=== PATIENT | male | born 1960 | race Caucasian/White ===

== ENCOUNTER 2016-11-24 20:22 | Emergency (ER) | payer OTHER ==
[~2016-11-24] VITALS: Ht 182.8 cm; Wt 79.8 kg
[~2016-11-24 20:22] MED LIST: CYCLOBENZAPRINE10 MG PO; LISINOPRIL AND1 TAB PO; LISINOPRIL10 M1 PO; LOPRESSOR50 M1 PO; MELATONIN10 M4 PO; METOPROLOL TART50 M1 PO; MOBIC15 MG PO; MOBIC7.5 MG PO; NATURE'S BLEN2000 IU PO; PROVENTIL0.09 MG/AC IH; SYMBICORT1 AE1 INH; TRAZODONE50 MG PO; VITAMIN D1000 IU PO; ZITHROMAX Z PA250 MG PO
[2016-11-24 21:02] LABS: BASO # 0.1 10*3/uL (0.0-0.1); BASO % 0.8 % (0.0-1.0); EOS # 0.4 10*3/uL (0.0-0.4); EOS % 5.9 % (1.0-4.0); HEMATOCRIT 42.2 % (42.0-52.0); LYMPH # 2.6 10*3/uL (1.3-4.4); LYMPH % 36.4 % (27.0-41.0); MEAN CELL VOLUME 89.6 fl (80.0-94.0); MEAN CORPUSCULAR HGB 31.8 pg (27.0-31.0); MEAN CORPUSCULAR HGB CONC 35.5 g/dl (33.0-37.0); MEAN PLATELET VOLUME 10.6 fl (9.6-12.3); MONO # 0.9 10*3/uL (0.1-1.0); MONO % 12.3 % (3.0-9.0); NEUT # 3.2 10*3/uL (2.3-7.9); NEUT % 44.5 % (47.0-73.0); PLATELET COUNT AUTOMATED 243 10*3/uL (130-400); RED BLOOD COUNT 4.71 10*6/uL (4.50-5.90); WHITE BLOOD COUNT 7.2 10*3/uL (4.8-10.8)
[2016-11-24 21:19] LABS: ALBUMIN 3.8 gm/dl (3.1-4.5); ALKALINE PHOSPHATASE 58 U/L (45-117); BILIRUBIN, TOTAL 0.3 mg/dl (0.2-1.0); BUN 26 mg/dl (7-24); CARBON DIOXIDE 27 mmol/L (21-32); CHLORIDE 99 mmol/L (98-107); EST GLOM FILT AFRICAN AMERICAN > 60 ml/min; GLUCOSE 90 mg/dL (65-99); POTASSIUM 4.3 mmol/L (3.5-5.1); SGOT/AST 28 IU/L (3-35); SGPT/ALT 33 U/L (12-78); SODIUM 136 mmol/L (136-145); TOTAL PROTEIN 7.5 gm/dL (6.4-8.2)
[2016-11-24] MEDS ORDERED: PROAIR HFA8.5 GM INH (22:19)
[2016-11-24] MEDS ORDERED: PREDNISONE50 MG PO (22:19)
[2016-11-24] MEDS ORDERED: ZITHROMAX250 MG PO (22:19)
== END 2016-11-24 22:20 | disposition home or self-care (01) ==
LOC: ED 20:22
PROVIDERS: Emergency Medicine
DX: J32.9 Chronic sinusitis, unspecified (principal); J40 Bronchitis, not specified as acute or chronic; F17.210 Nicotine dependence, cigarettes, uncomplicated; I10 Essential (primary) hypertension; J44.9 Chronic obstructive pulmonary disease, unspecified; Z79.899 Other long term (current) drug therapy

== ENCOUNTER 2016-12-23 11:23 | Emergency (ER) | payer OTHER ==
[~2016-12-23] VITALS: Ht 182.8 cm; Wt 77.1 kg
[~2016-12-23 11:23] MED LIST changes: +PREDNISONE50 MG PO; +PROAIR HFA8.5 GM INH; +ZITHROMAX250 MG PO
== END 2016-12-23 13:42 | disposition home or self-care (01) ==
LOC: ED 11:23
DX: S16.1XXA Strain of muscle, fascia and tendon at neck level, initial encounter (principal); F17.200 Nicotine dependence, unspecified, uncomplicated; J44.9 Chronic obstructive pulmonary disease, unspecified; I10 Essential (primary) hypertension; Z86.2 Personal history of diseases of the blood and blood-forming organs and certain disorders involving the immune mechanism; Z79.899 Other long term (current) drug therapy; Z88.8 Allergy status to other drugs, medicaments and biological substances; V86.99XA Unspecified occupant of other special all-terrain or other off-road motor vehicle injured in nontraffic accident, initial encounter; Y93.89 Activity, other specified; Y92.413 State road as the place of occurrence of the external cause; Y99.9 Unspecified external cause status

== ENCOUNTER 2018-03-09 16:32 | Inpatient (IN) | payer OTHER ==
[~2018-03-09] VITALS: Ht 182.8 cm; Wt 75.8 kg
--- NOTE | ~2018-03-09 | EKG ---
[place], [place] ELECTROCARDIOGRAM REPORT NAME: AUGUSTINE KUHN UNIT #: [id number] ROOM: 415 DOCTOR: GUNNER EPSTEIN MD BIRTHDATE: [birth year] DOS: 03/09/2018 TIME: 1640 hours. FINDINGS: 1. Normal sinus rhythm with 93 beats per minute. 2. Poor RV progression is present. Consider an old anteroseptal myocardial infarction. 3. An abnormal ECG. 4. No previous tracing is available for comparison. GUNNER EPSTEIN MD CM:EKGRPT:ELECTROCARDIOGRAM REPORT [id number] GUNNER EPSTEIN MD
--- NOTE | ~2018-03-09 | EKG ---
[place], [place] ELECTROCARDIOGRAM REPORT NAME: AUGUSTINE KUHN UNIT #: [id number] ROOM: 415 DOCTOR: GUNNER EPSTEIN MD BIRTHDATE: [birth year] DOS: 03/09/2018 TIME: 1937 hours. FINDINGS: 1. Normal sinus rhythm at 91 beats per minute. 2. An old anteroseptal myocardial infarction. 3. No significant change from the ECG done at 1640 hours of the same day. GUNNER EPSTEIN MD CM:EKGRPT:ELECTROCARDIOGRAM REPORT [id number] GUNNER EPSTEIN MD
--- NOTE | ~2018-03-09 | CON ---
[place], [place] REPORT OF CONSULTATION NAME: AUGUSTINE KUHN UNIT #: [id number] ROOM: 415 DOCTOR: FILEMON CARRANZA MD BIRTHDATE: [birth year] DOS: 03/10/2018 HISTORY OF PRESENT ILLNESS: The patient is a 58-year-old gentleman admitted with chest discomfort and lightheadedness. The patient has a very strong family history of coronary artery disease. The patient is a heavy smoker. No acute EKG changes, myocardial injury or infarction. Troponins have been negative. PAST MEDICAL HISTORY: Significant for GI bleed, hypertension, hyponatremia, anemia, history of syncope, and tobacco abuse. SURGICAL HISTORY: History of cataract surgery. SOCIAL HISTORY: Does drink alcohol. Denies any drug abuse. The patient is a smoker. FAMILY HISTORY: Strong family history of coronary artery in father with GA, in the age of 53. HOME MEDICATIONS: Lisinopril, Ventolin, and trazodone. REVIEW OF SYSTEMS: CONSTITUTIONAL: No fever, no chills. HEENT: No visual disturbance, hearing problems. CARDIOVASCULAR: As per HPI. GASTROINTESTINAL: No nausea, no vomiting. GENITOURINARY: No dysuria. NEUROLOGIC: Stable. PHYSICAL EXAMINATION: VITAL SIGNS: Blood pressure is 130/80. He is in sinus rhythm. HEENT: Unremarkable. NECK: Supple, no JVD. LUNGS: Clear. HEART: Sounds are regular. ABDOMEN: Soft, nontender. NEUROLOGIC: Stable. LABORATORY DATA: Sodium 133, potassium 4.1, and creatinine is normal. Liver functions are normal. Hemoglobin 17, hematocrit normal. Chest x-ray is normal. IMPRESSION: The patient with atypical chest discomfort, chronic obstructive pulmonary disease, hypertension, family history of coronary artery disease, and presyncope. RECOMMENDATIONS: Agree with the present management. Proceed with the Lexiscan Cardiolite stress test. Continue the present medication. Lexiscan will be done today. Further management will depend upon the stress findings. Also, we will review the echocardiogram. [place], [place] REPORT OF CONSULTATION NAME: AUGUSTINE KUHN UNIT #: [id number] ROOM: 415 DOCTOR: FILEMON CARRANZA MD BIRTHDATE: [birth year] FILEMON CARRANZA MD CM:CONSTR:REPORT OF CONSULTATION 4 03/10/18 0747 interface
--- NOTE | ~2018-03-09 | ST ---
[place], [place] EXERCISE STRESS TEST REPORT NAME: AUGUSTINE KUHN UNIT #: [id number] ROOM: 415 DOCTOR: FILEMON CARRANZA MD BIRTHDATE: [birth year] DOS: 03/10/2018 LEXISCAN PORTION OF THE LEXISCAN CARDIOLITE With Lexiscan no new EKG changes. The patient had no chest discomfort. Baseline EKG, sinus rhythm with poor R-wave progression in the anterior leads and with Lexiscan no chest pain, no dysrhythmia. Blood pressure and heart rate response was normal. Nuclear images will be reported separately. FILEMON CARRANZA MD CM:STRESS:EXERCISE STRESS TEST REPORT 0720 0727 FILEMON CARRANZA MD
--- NOTE | ~2018-03-09 | EKG ---
[place], [place] ELECTROCARDIOGRAM REPORT NAME: AUGUSTINE KUHN UNIT #: [id number] ROOM: 415 DOCTOR: GUNNER EPSTEIN MD BIRTHDATE: [birth year] DOS: 03/09/2018 TIME: 2219 hours. FINDINGS: 1. Normal sinus rhythm at 89 beats per minute. 2. Possible old anteroseptal myocardial infarction. 3. No significant change from ECG done at 1937 of the same day. GUNNER EPSTEIN MD CM:EKGRPT:ELECTROCARDIOGRAM REPORT [id number] 0926 GUNNER EPSTEIN MD
[2018-03-09 16:33] VITALS: BP 138/99
[2018-03-09] MEDS ORDERED: VENTOLIN INHALER INH (16:51)
[2018-03-09] MEDS ORDERED: LISINOPRIL2.5 MG PO (16:52)
[2018-03-09 16:55] VITALS: BP 129/96
[2018-03-09] MEDS ORDERED: SINGULAIR10 M1 PO (16:55)
[2018-03-09 17:15] LABS: BASO # 0.1 10*3/uL (0.0-0.1); BASO % 0.9 % (0.0-1.0); EOS # 0.1 10*3/uL (0.0-0.4); EOS % 1.6 % (1.0-4.0); HEMATOCRIT 47.8 % (42.0-52.0); LYMPH # 1.8 10*3/uL (1.3-4.4); MEAN CELL VOLUME 93.7 fl (80.0-94.0); MEAN CORPUSCULAR HGB 33.3 pg (27.0-31.0); MEAN CORPUSCULAR HGB CONC 35.6 g/dl (33.0-37.0); MEAN PLATELET VOLUME 10.4 fl (9.6-12.3); MONO # 0.7 10*3/uL (0.1-1.0); MONO % 8.8 % (3.0-9.0); NEUT % 65.6 % (47.0-73.0); PLATELET COUNT AUTOMATED 243 10*3/uL (130-400); RED CELL DISTRI WIDTH 12.3 % (0-14.5); WHITE BLOOD COUNT 7.7 10*3/uL (4.8-10.8)
[2018-03-09 17:24] LABS: ACT PARTIAL THROMBO TIME 24.2 SECONDS (20.8-31.5); INTERNATIONAL NORM RATIO 0.9 (2.0-3.5)
[2018-03-09 17:32] LABS: ALKALINE PHOSPHATASE 58 U/L (45-117); BUN 7 mg/dl (7-24); CHLORIDE 97 mmol/L (98-107); CREATININE 0.93 mg/dL (0.70-1.30); POTASSIUM 4.1 mmol/L (3.5-5.1); SGOT/AST 83 IU/L (3-35); SGPT/ALT 98 U/L (12-78); SODIUM 133 mmol/L (136-145); TOTAL PROTEIN 8.2 gm/dL (6.4-8.2)
[2018-03-09 17:37] LABS: TROPONIN I < 0.015 ng/ml (<0.045)
[2018-03-09 17:49] VITALS: BP 128/93
[2018-03-09 19:10] VITALS: BP 135/95
[2018-03-09 20:00] VITALS: BP 135/87
[2018-03-10] VITALS: BP 131/93
[2018-03-10 05:52] VITALS: BP 154/96
[2018-03-10 09:17] LABS: HEMOGLOBIN 15.6 g/dl (14.0-18.0); MEAN CELL VOLUME 94.6 fl (80.0-94.0); MEAN CORPUSCULAR HGB 33.5 pg (27.0-31.0); MEAN CORPUSCULAR HGB CONC 35.5 g/dl (33.0-37.0); MEAN PLATELET VOLUME 10.7 fl (9.6-12.3); PLATELET COUNT AUTOMATED 219 10*3/uL (130-400); RED BLOOD COUNT 4.65 10*6/uL (4.50-5.90); RED CELL DISTRI WIDTH 12.4 % (0-14.5); WHITE BLOOD COUNT 12.5 10*3/uL (4.8-10.8)
[2018-03-10 09:36] LABS: ALBUMIN 3.7 gm/dl (3.1-4.5); BUN 9 mg/dl (7-24); CHLORIDE 102 mmol/L (98-107); CHOLESTEROL 161 mg/dL (<200); CREATININE 0.99 mg/dL (0.70-1.30); PHOSPHOROUS 2.8 mg/dL (2.5-4.9); POTASSIUM 3.5 mmol/L (3.5-5.1); SGOT/AST 32 IU/L (3-35); SGPT/ALT 71 U/L (12-78); SODIUM 136 mmol/L (136-145); TRIGLYCERIDES 43 mg/dl (<150); VLDL CHOLESTEROL 9 mg/dL (6-40)
[2018-03-10 09:40] LABS: PLATELET SUFFICIENCY NORMAL (NORMAL); TOTAL CELLS COUNTED 100 #CELLS
[2018-03-10 09:43] LABS: ALKALINE PHOSPHATASE 46 U/L (45-117); HDL CHOLESTEROL 91 mg/dl (40-60); LDL CHOLESTEROL 61 mg/dL (9-159); THYROID STIM HORMONE (HS) 0.656 uIU/ml (0.358-4.75); TOTAL PROTEIN 7.5 gm/dL (6.4-8.2)
[2018-03-10] MEDS ORDERED: PROVENTIL HFA6.7 GM INH (09:46)
[2018-03-10] MEDS ORDERED: SPIRIVA18 MCG PO (09:47)
[2018-03-10 12:00] VITALS: BP 162/96
[2018-03-10 12:57] LABS: VITAMIN D, 25-HYDROXY 70.5 ng/mL (30-100)
[2018-03-10 16:00] VITALS: BP 133/75; BP 141/87
== END 2018-03-10 18:37 | disposition home or self-care (01) | DRG 312 ==
LOC: ED 16:32 → 4E 18:09 → EDHOLD 18:09 → 4E 18:40
PROVIDERS: Emergency Medicine; Internal Medicine
PROC: 4A02XM4 Measurement of Cardiac Total Activity, External Approach (ICD-10-PCS; principal; 2018-03-10)
PROC: 3E073KZ Introduction of Other Diagnostic Substance into Coronary Artery, Percutaneous Approach (ICD-10-PCS; 2018-03-10)
DX: R55 Syncope and collapse (principal); I11.0 Hypertensive heart disease with heart failure; E87.8 Other disorders of electrolyte and fluid balance, not elsewhere classified; R65.10 Systemic inflammatory response syndrome (SIRS) of non-infectious origin without acute organ dysfunction; I50.32 Chronic diastolic (congestive) heart failure; E87.1 Hypo-osmolality and hyponatremia; E83.41 Hypermagnesemia; R07.89 Other chest pain; I25.2 Old myocardial infarction; D72.810 Lymphocytopenia; R74.0 Nonspecific elevation of levels of transaminase and lactic acid dehydrogenase [LDH]; J44.9 Chronic obstructive pulmonary disease, unspecified; F17.210 Nicotine dependence, cigarettes, uncomplicated; F10.10 Alcohol abuse, uncomplicated; D53.9 Nutritional anemia, unspecified; I77.810 Thoracic aortic ectasia; Z71.6 Tobacco abuse counseling; Z98.49 Cataract extraction status, unspecified eye; Z83.3 Family history of diabetes mellitus; Z82.49 Family history of ischemic heart disease and other diseases of the circulatory system; Z88.8 Allergy status to other drugs, medicaments and biological substances; Z79.51 Long term (current) use of inhaled steroids; Z79.899 Other long term (current) drug therapy

== ENCOUNTER 2018-10-28 12:24 | Emergency (ER) | payer OTHER ==
[~2018-10-28] VITALS: Ht 182.8 cm; Wt 88.5 kg
--- NOTE | ~2018-10-28 | EKG ---
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
[~2018-10-28 12:24] MED LIST changes: +LISINOPRIL2.5 MG PO; +PROVENTIL HFA6.7 GM INH; +SINGULAIR10 M1 PO; +SPIRIVA18 MCG PO; +VENTOLIN INHALER INH
[2018-10-28 13:26] LABS: BASO # 0.1 10*3/uL (0.0-0.1); BASO % 1.1 % (0.0-1.0); EOS # 0.4 10*3/uL (0.0-0.4); EOS % 4.8 % (1.0-4.0); HEMOGLOBIN 14.3 g/dl (14.0-18.0); LYMPH # 2.2 10*3/uL (1.3-4.4); LYMPH % 29.4 % (27.0-41.0); MEAN CORPUSCULAR HGB 32.9 pg (27.0-31.0); MEAN CORPUSCULAR HGB CONC 35.8 g/dl (33.0-37.0); MEAN PLATELET VOLUME 10.4 fl (9.6-12.3); MONO # 0.6 10*3/uL (0.1-1.0); MONO % 8.5 % (3.0-9.0); NEUT # 4.2 10*3/uL (2.3-7.9); NEUT % 55.8 % (47.0-73.0); PLATELET COUNT AUTOMATED 275 10*3/uL (130-400); RED BLOOD COUNT 4.35 10*6/uL (4.50-5.90); RED CELL DISTRI WIDTH 11.9 % (0-14.5); WHITE BLOOD COUNT 7.6 10*3/uL (4.8-10.8)
[2018-10-28 14:04] LABS: ALBUMIN 3.8 gm/dl (3.1-4.5); ALKALINE PHOSPHATASE 60 U/L (45-117); BUN 17 mg/dl (7-24); CHLORIDE 101 mmol/L (98-107); CREATININE 1.26 mg/dL (0.70-1.30); LIPASE 138 U/L (73-393); POTASSIUM 3.9 mmol/L (3.5-5.1); SGOT/AST 15 IU/L (3-35); SGPT/ALT 29 U/L (12-78); SODIUM 135 mmol/L (136-145); TOTAL PROTEIN 7.8 gm/dL (6.4-8.2)
[2018-10-28 14:05] LABS: TROPONIN I < 0.015 ng/ml (<0.045)
[2018-10-28 14:19] LABS: ACT PARTIAL THROMBO TIME 23.5 SECONDS (20.8-31.5); INTERNATIONAL NORM RATIO 0.9 (2.0-3.5)
[2018-10-28] MEDS ORDERED: PRILOSEC20 M1 PO (15:35)
[2019-02-11] MEDS ORDERED: ATENOLOL25 MG PO (12:20)
== END 2018-10-28 15:39 | disposition home or self-care (01) ==
LOC: ED 12:24
PROVIDERS: Internal Medicine
DX: K29.70 Gastritis, unspecified, without bleeding (principal); L40.9 Psoriasis, unspecified; Z87.891 Personal history of nicotine dependence; Z88.8 Allergy status to other drugs, medicaments and biological substances; Z79.899 Other long term (current) drug therapy

== ENCOUNTER 2019-05-13 08:59 | Emergency (ER) | payer OTHER ==
[~2019-05-13] VITALS: Ht 182.8 cm; Wt 81.6 kg
[~2019-05-13 08:59] MED LIST changes: +ATENOLOL25 MG PO; +PRILOSEC20 M1 PO
[2019-05-13] MEDS ORDERED: CEPHALEXIN500 M1 PO (09:37)
[2019-05-13] MEDS ORDERED: SEPTDS PO (09:37)
== END 2019-05-13 09:39 | disposition home or self-care (01) ==
LOC: ED 08:59
DX: L02.212 Cutaneous abscess of back [any part, except buttock and flank] (principal); I10 Essential (primary) hypertension; F17.200 Nicotine dependence, unspecified, uncomplicated; Z88.8 Allergy status to other drugs, medicaments and biological substances; Z79.899 Other long term (current) drug therapy

== ENCOUNTER 2020-11-22 08:51 | Emergency (ER) | payer OTHER ==
[~2020-11-22] VITALS: Wt 81.6 kg
[~2020-11-22 08:51] MED LIST changes: +CEPHALEXIN500 M1 PO; +SEPTDS PO
[2020-11-22] MEDS ORDERED: DEBROX15 ML OT (09:14)
== END 2020-11-22 09:14 | disposition home or self-care (01) ==
LOC: ED 08:51
DX: H61.21 Impacted cerumen, right ear (principal); J44.9 Chronic obstructive pulmonary disease, unspecified; I10 Essential (primary) hypertension; F17.200 Nicotine dependence, unspecified, uncomplicated; Z88.8 Allergy status to other drugs, medicaments and biological substances; Z79.899 Other long term (current) drug therapy

== ENCOUNTER 2022-07-13 09:44 | Emergency (ER) | payer OTHER ==
[~2022-07-13] VITALS: Ht 182.8 cm; Wt 79.4 kg
[~2022-07-13 09:44] MED LIST changes: +DEBROX15 ML OT
[2022-07-13] MEDS ORDERED: CETRAXAL1 EACH OT (10:36)
== END 2022-07-13 10:45 | disposition home or self-care (01) ==
LOC: ED 09:44
DX: H60.91 Unspecified otitis externa, right ear (principal); Z88.8 Allergy status to other drugs, medicaments and biological substances; Z79.899 Other long term (current) drug therapy; F17.200 Nicotine dependence, unspecified, uncomplicated

== ENCOUNTER 2023-03-28 10:02 | Emergency (ER) | payer OTHER ==
[~2023-03-28] VITALS: Ht 182.8 cm; Wt 77.1 kg
[~2023-03-28 10:02] MED LIST changes: +CETRAXAL1 EACH OT
[2023-03-28] MEDS ORDERED: CEPHALEXIN500 M1 PO (10:31)
[2023-03-28] MEDS ORDERED: BACITRACIN28.4 GM TD (10:31)
[2023-03-28] MEDS ORDERED: XEROFORM PETRO1 EACH TD (10:31)
== END 2023-03-28 10:19 | disposition home or self-care (01) ==
LOC: ED 10:02
DX: S51.811A Laceration without foreign body of right forearm, initial encounter (principal); L03.113 Cellulitis of right upper limb; J44.9 Chronic obstructive pulmonary disease, unspecified; I11.0 Hypertensive heart disease with heart failure; I50.9 Heart failure, unspecified; E78.5 Hyperlipidemia, unspecified; F17.200 Nicotine dependence, unspecified, uncomplicated; Z88.8 Allergy status to other drugs, medicaments and biological substances; Z98.890 Other specified postprocedural states; W23.0XXA Caught, crushed, jammed, or pinched between moving objects, initial encounter; Y93.89 Activity, other specified; Y92.098 Other place in other non-institutional residence as the place of occurrence of the external cause; Y99.8 Other external cause status

== ENCOUNTER → 2023-06-19 | Outpatient (CLI) | payer OTHER ==
[~2023-06-19] MED LIST changes: +BACITRACIN28.4 GM TD; +XEROFORM PETRO1 EACH TD
== END | disposition home or self-care (01) ==
LOC: CT 08:36
PROVIDERS: ATTEND Specialist
DX: H71.91 Unspecified cholesteatoma, right ear (principal)

== ENCOUNTER 2023-12-03 05:34 | Emergency (ER) | payer OTHER ==
[~2023-12-03] VITALS: Ht 182.8 cm; Wt 77.1 kg
[2023-12-03] MEDS ORDERED: SULFAMETHOXAZOLE-TMP (05:49)
[2023-12-03] MEDS ORDERED: OFLOXACIN 10 ML10 M2 OT (05:49)
[2023-12-03] MEDS ORDERED: CLINDAMYCIN HCL 300 MG CAPSULE PO ONE (05:55)
[2023-12-03] MEDS ORDERED: CLINDAMYCIN HC300 MG PO (06:01)
== END 2023-12-03 06:14 | disposition home or self-care (01) ==
LOC: ED 05:34
DX: B37.0 Candidal stomatitis (principal); H92.01 Otalgia, right ear; J44.9 Chronic obstructive pulmonary disease, unspecified; I10 Essential (primary) hypertension; Z88.0 Allergy status to penicillin; Z88.8 Allergy status to other drugs, medicaments and biological substances; Z98.890 Other specified postprocedural states; F10.10 Alcohol abuse, uncomplicated; F17.200 Nicotine dependence, unspecified, uncomplicated

== ENCOUNTER 2023-12-25 10:47 | Emergency (ER) | payer OTHER ==
[~2023-12-25] VITALS: Wt 79.8 kg
[~2023-12-25 10:47] MED LIST changes: +CLINDAMYCIN HC300 MG PO; +OFLOXACIN 10 ML10 M2 OT; +SULFAMETHOXAZOLE-TMP
[2023-12-25] MEDS ORDERED: TYLENOL EXTRA500 MG PO (11:09)
[2023-12-25] MEDS ORDERED: BENZOCAINE 20% 11.9 GM GEL T STA (11:10)
[2023-12-25] MEDS ORDERED: Lidocaine Hydrochloride 15 ML UDC PO STA (11:10)
== END 2023-12-25 11:25 | disposition home or self-care (01) ==
LOC: ED 10:47
DX: S00.522A Blister (nonthermal) of oral cavity, initial encounter (principal); J44.9 Chronic obstructive pulmonary disease, unspecified; I10 Essential (primary) hypertension; Z88.0 Allergy status to penicillin; Z88.8 Allergy status to other drugs, medicaments and biological substances; Z98.890 Other specified postprocedural states; F10.10 Alcohol abuse, uncomplicated; F17.200 Nicotine dependence, unspecified, uncomplicated; X58.XXXA Exposure to other specified factors, initial encounter; Y93.89 Activity, other specified; Y92.89 Other specified places as the place of occurrence of the external cause; Y99.8 Other external cause status

== ENCOUNTER → 2023-12-26 | Outpatient (CLI) | payer OTHER ==
[~2023-12-26] MED LIST changes: +IOHEXOL 300 MG/ML 100 ML VIAL IV ONE; +TYLENOL EXTRA500 MG PO
== END | disposition home or self-care (01) ==
LOC: CT 01:41
PROVIDERS: ATTEND Internal Medicine
DX: K05.219 Aggressive periodontitis, localized, unspecified severity (principal)

== ENCOUNTER → 2024-02-06 | Outpatient (CLI) | payer OTHER ==
[~2024-02-06] MED LIST changes: -IOHEXOL 300 MG/ML 100 ML VIAL IV ONE
[2024-02-06 12:59] LABS: BASO # 0.1 10*3/uL (0.0-0.1); BASO % 1.3 % (0.0-1.0); EOS # 0.3 10*3/uL (0.0-0.4); EOS % 2.6 % (1.0-4.0); HEMATOCRIT 56.6 % (42.0-52.0); LYMPH # 2.4 10*3/uL (1.3-4.4); LYMPH % 23.5 % (27.0-41.0); MEAN CELL VOLUME 97.6 fl (80.0-94.0); MEAN CORPUSCULAR HGB 34.3 pg (27.0-31.0); MEAN CORPUSCULAR HGB CONC 35.2 g/dl (33.0-37.0); MONO # 0.9 10*3/uL (0.1-1.0); MONO % 9.2 % (3.0-9.0); NEUT # 6.4 10*3/uL (2.3-7.9); NEUT % 63.1 % (47.0-73.0); PLATELET COUNT AUTOMATED 272 10*3/uL (130-400); RED CELL DISTRI WIDTH 12.4 % (0-14.5); WHITE BLOOD COUNT 10.2 10*3/uL (4.8-10.8)
[2024-02-06 13:47] LABS: BUN 6 mg/dl (9-23); CHLORIDE 98 mmol/L (98-107); POTASSIUM 4.3 mmol/L (3.4-5.1)
== END ==
LOC: LAB 12:36
PROVIDERS: ATTEND Otolaryngology Plastic Surgery within the Head & Neck
DX: Z01.818 Encounter for other preprocedural examination (principal)

== ENCOUNTER 2025-05-23 06:26 | Emergency (ER) | payer OTHER ==
[~2025-05-23] VITALS: Ht 182.8 cm; Wt 77.1 kg
== END 2025-05-23 06:59 | disposition home or self-care (01) ==
LOC: ED 06:26
DX: H00.012 Hordeolum externum right lower eyelid (principal); I10 Essential (primary) hypertension; F17.210 Nicotine dependence, cigarettes, uncomplicated; Z98.890 Other specified postprocedural states; Z88.0 Allergy status to penicillin; Z88.8 Allergy status to other drugs, medicaments and biological substances; Z86.16 Personal history of COVID-19; Z87.19 Personal history of other diseases of the digestive system